=== PATIENT | female | born 1995 | race Two or more races ===

== ENCOUNTER 2022-01-13 05:05 | Inpatient (IN) | payer OTHER ==
[2022-01-13] MEDS ORDERED: MISOPROSTOL 200 MCG TABLET ONE (05:46)
[2022-01-13 05:48] LABS: BASO % 0.4 % (0-2.0); EOS % 1.2 % (0-4.5); HEMATOCRIT 35.2 % (32.4-45.2); HEMOGLOBIN 11.9 GM/dL (10.7-15.3); LYMPH % 26.5 % (8-40); MCHC 33.8 g/dl (32.0-36.0); MEAN CELL VOLUME 85.6 fl (80-96); MEAN PLT VOLUME 10.2 fl (7.5-11.1); MONO % 8.1 % (3.8-10.2); NEUT % 63.8 % (42.8-82.8); PLATELET COUNT 241 10^3/uL (134-434); RBC 4.11 M/mm3 (3.60-5.2); RDW 14.1 % (11.6-15.6); WHITE BLOOD COUNT 8.7 K/mm3 (4.0-10.0)
[2022-01-13 05:59] LABS: INR 0.92 (0.83-1.09); PROTHROMBIN TIME (PATIENT) 10.6 SEC (9.7-13.0)
[2022-01-13] MEDS ORDERED: ELECTROLYTE-148 SOLN 1,000 ML IV SCH (06:00)
[2022-01-13 06:01] LABS: ACTIVATED PTT 30.4 SECONDS (25.2-36.5)
[2022-01-13] MEDS ORDERED: BISACODYL 10 MG SUPP.RECT RC PRN (06:01)
[2022-01-13] MEDS ORDERED: ACETAMINOPHEN 325 MG TABLET (FP) PO PRN (06:01)
[2022-01-13] MEDS ORDERED: WITCH HAZEL 50% (TUCKS) 40 PAD/JAR PAD TP PRN (06:01)
[2022-01-13] MEDS ORDERED: IBUPROFEN 600 MG TABLET (FP) PO PRN (06:01)
[2022-01-13] MEDS ORDERED: BENZOCAINE 20% 57 GM BOTTLE TP PRN (06:01)
[2022-01-13] MEDS ORDERED: BENZOCAINE 28 GM HEMORRHOIDAL OINTMENT TP PRN (06:01)
[2022-01-13] MEDS ORDERED: MISOPROSTOL 200 MCG TABLET NR ONE (06:02)
[2022-01-13 06:14] LABS: CALCIUM 8.2 mg/dL (8.5-10.1)
[2022-01-13] MEDS ORDERED: OXYTOCIN 20 UNITS in 0.9% NS 20 UNIT/1,000 ML INFUS.BAG IV SCH (06:15)
[2022-01-13 06:18] LABS: CREATININE 0.7 mg/dL (0.55-1.3)
[2022-01-13 06:25] VITALS: BMI 30.9
[2022-01-14 08:41] LABS: BASO % 0.5 % (0-2.0); EOS % 1.8 % (0-4.5); HEMATOCRIT 31.2 % (32.4-45.2); HEMOGLOBIN 10.5 GM/dL (10.7-15.3); LYMPH % 33.8 % (8-40); MCH 28.7 pg (25.7-33.7); MCHC 33.7 g/dl (32.0-36.0); MEAN CELL VOLUME 85.2 fl (80-96); MEAN PLT VOLUME 9.7 fl (7.5-11.1); MONO % 6.2 % (3.8-10.2); NEUT % 57.7 % (42.8-82.8); PLATELET COUNT 218 10^3/uL (134-434); RBC 3.67 M/mm3 (3.60-5.2); RDW 13.9 % (11.6-15.6); WHITE BLOOD COUNT 8.8 K/mm3 (4.0-10.0)
[2022-01-14] MEDS ORDERED: SENNOSIDES/DOCUSATE COMBO (SENNA PLUS) TABLET (UD) PO PRN (22:00)
[2022-01-14 22:22] VITALS: TEMP 98
[2022-01-15 09:59] VITALS: BP 137/87; PULSE 78; RESP 16
== END 2022-01-15 12:10 | disposition home or self-care (01) | DRG 560 ==
LOC: JLDR 05:05 → J3W 07:45
PROVIDERS: ADMIT Student in an Organized Health Care Education/Training Program; ATTEND Student in an Organized Health Care Education/Training Program
PROC: 10E0XZZ Delivery of Products of Conception, External Approach (ICD-10-PCS; principal; 2022-01-13)
DX: O48.0 Post-term pregnancy (principal); Z3A.40 40 weeks gestation of pregnancy; Z37.0 Single live birth
CPT/HCPCS: 36415; 59025; 59409; 80048; 80307; 85025; 85610; 85730; 86780; 86850; 86900; 86901; 87081; C9803-CS; U0003; U0005